=== PATIENT | male | born 1945 | race Caucasian/White ===

== ENCOUNTER 2018-12-02 11:06 | Observation (INO) | payer OTHER, MEDICARE | END 2018-12-03 10:42 | disposition home or self-care (01) | LOC: FCATH 11:06 → F2W 14:15 ==

== ENCOUNTER → 2018-12-12 | Outpatient (CLI) | payer OTHER, MEDICARE | LOC: FIMAGING 16:10 ==

== ENCOUNTER → 2018-12-14 | Outpatient (CLI) | payer OTHER, MEDICARE | LOC: FIMAGING 11:06 ==

== ENCOUNTER 2018-12-21 09:38 | Observation (INO) | payer OTHER, MEDICARE | END 2018-12-22 12:44 | disposition home or self-care (01) | LOC: FCATH 09:38 → F2W 13:41 ==